=== PATIENT | female | born 1945 | race Caucasian/White ===

== ENCOUNTER → 2023-08-23 12:56 | Outpatient (REF) | payer MEDICARE, BC, SELFPAY | LOC: WDC 12:56 | PROVIDERS: ATTENDING PHYSICIAN Internal Medicine | DX: M85.89 Other specified disorders of bone density and structure, multiple sites (principal); Z12.31 Encounter for screening mammogram for malignant neoplasm of breast | CPT/HCPCS: 77063; 77067; 77080 ==

== ENCOUNTER 2023-09-06 10:54 | Inpatient (IN) | payer MEDICARE, BC, SELFPAY ==
--- NOTE | 2023-08-07 08:36 | CM ---
Patient is scheduled for an elective R TKR on 09/06/23. Spoke with patient prior to surgery via telephone. Introduced role of Orthopedic Navigator. Patient reports that she lives alone in a two story home. There are three steps to enter and patient
has a first floor set up. She currently functions independently and occasionally uses a cane. She has no other DME and has never had VN services. PCP is Dr. Fiona Cardoza.
Discussed orthopedic program and post surgical plans. Reviewed anticipated length of stay and that goal is for her to return home at discharge. Also reviewed outpatient PT. Patient is in agreement with tentative plan and states that [facility] [place] will
see her at home initially.
Patient will complete online education.
Plan: Orthopedic Navigator will remain available to assist with the care of patient and will reassess discharge needs after surgery.
[2023-08-16 09:01] VITALS: BMI 27.8
[2023-08-16 10:46] LABS: % Basophils 0.3 % (0-2); % Eosinophils 1.1 % (0-6); % Immature Granulocytes 0.3 % (0-0.5); % Lymphocytes 36.5 % (20.5-51.1); % Monocytes 9.4 % (1.7-9.3); % Neutrophils 52.4 % (42.2-75.2); Absolute Eosinophils 0.1 10^3/uL (0-0.7); Absolute Lymphocytes 3.8 10^3/uL (1.2-3.4); Absolute Neutrophils 5.4 10^3/uL (1.4-6.5); Hematocrit 42.9 % (37.0-47.0); Hemoglobin 14.5 g/dL (12.0-16.0); Mean Corp Hgb Conc. 33.8 g/dL (33.0-37.0); Mean Corpuscular Volume 91.7 fL (81.0-99.0); Mean Platelet Volume 10.7 fL (7.4-10.4); Nucleated Red Blood Cells % 0 %; Platelet Count 301 10^3/uL (130-400); Red Blood Cell Count 4.68 10^6/uL (4.20-5.40); Red Cell Dist. Width 12.4 % (11.5-14.5); White Blood Cell Count 10.4 10^3/uL (4.8-10.8)
[2023-08-16 11:11] LABS: ALT (SGPT) 32 U/L (0-35); AST (SGOT) 34 U/L (14-36); Albumin 4.6 g/dl (3.5-5.0); Alkaline Phosphatase 109 U/L (38-126); Blood Urea Nitrogen 22 mg/dl (7-17); Calcium 9.7 mg/dl (8.4-10.2); Carbon Dioxide 26 mmol/L (22-30); Chloride 100 mmol/L (98-107); Estimated Creatinine Clearance 71 ml/min; Glucose 123 mg/dl (70-99); HDL Cholesterol 49 mg/dl; LDL Cholesterol, Calculated 107 mg/dl; Potassium 5.2 mmol/L (3.5-5.1); Sodium 135 mmol/L (135-145); Total Bilirubin 0.7 mg/dl (0.2-1.3); Total Cholesterol 183 mg/dl (50-199); Total Protein 6.9 g/dl (6.3-8.2); Triglyceride 137 mg/dl (10-149); Very Low Density Lipoprotein 27 mg/dl (0-30); eGFR > 60.00
[2023-08-16 13:45] LABS: Glycohemoglobin (HgbA1c) 6.6 % (4.0-5.6)
[2023-08-30 12:46] VITALS: BMI 27.8
[2023-09-06] VITALS (10 sets, daily range): BP systolic 96–124; BP diastolic 57–85; BMI 27.8
[2023-09-06] MEDS: CELEBREX 200 MG PO (11:23)
[2023-09-06] MEDS: TYLENOL 650 MG PO ×2 (11:23→20:01)
[2023-09-06] MEDS: NORMOSOL-R 1000 IV ×2 (11:23→16:21)
--- NOTE | 2023-09-06 12:24 | W.DS.TRANS ---
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
-
Discharge Instructions:
Sleep Apnea Risk Low
Discharge Diagnosis/Procedures R TKA Dr. White 09/06/23
Diet Diabetic, Carb Controlled
Activity With Walker
Driving Restrictions No driving
Bathing Restrictions OK to Shower
Instructions:
Stand-Alone Forms: Total Hip/Knee Replacement D/C
Changes to Home Medications: Yes
Discharge Medications:
DC Medications w/original date entered in [employer] by [employer]
alprazolam 0.25 mg tablet (Xanax) 0.25 mg PO HS PRN Sleep 09/01/22
atorvastatin 10 mg tablet 10 mg PO MOWEFR High Cholesterol 09/01/22
duloxetine 60 mg capsule,delayed release (Cymbalta) 60 mg PO DAILY Mental Health/Anxiety 09/01/22
mecobalamin (vitamin B12) 1,000 mcg chewable tablet (B12 Active) 1,000 mcg PO DAILY Supplement 09/01/22
[place] Bergamot 1 cap PO BID 08/30/23
Elderberry 1 cap PO DAILY 08/30/23
Glucosamine Chondroitin 1 tab PO BID 08/30/23
Medical Marijuana 1 drp sublingual PRN PRN Sleep/Pain 08/30/23
amlodipine 10 mg tablet 10 mg PO DAILY 08/30/23
calcium 1 cap PO BID 08/30/23
cholecalciferol (vitamin D3) 50 mcg (2,000 unit) capsule (Vitamin D3) 50 mcg PO DAILY 08/30/23
coenzyme Q10 100 mg capsule (CoQ-10) 300 mg PO DAILY 08/30/23
collagen 1 dose PO DAILY 08/30/23
lisinopril 40 mg tablet 40 mg PO DAILY 08/30/23
mupirocin 2 % topical ointment 1 applic topical BID 08/30/23
turmeric 750 mg PO BID 08/30/23
acetaminophen 325 mg tablet 650 mg (2 x 325 mg) PO QID #0 tabs 09/06/23
aspirin 325 mg tablet 325 mg PO DAILY blood clot prevention #1 tab 09/06/23
celecoxib 200 mg capsule 200 mg PO DAILY anti-inflammatory #14 caps 09/06/23�
docusate sodium 100 mg capsule (Colace) 100 mg PO BID stool softner #1 cap 09/06/23�
magnesium hydroxide 400 mg/5 mL oral suspension (Milk of Magnesia) 30 ml PO HS PRN Constipation #1 mL 09/06/23�
ondansetron 4 mg disintegrating tablet 4 mg PO Q6H PRN n/v #20 tabs 09/06/23�
oxycodone 5 mg tablet 5 mg PO Q6H PRN 1 tab moderate pain, 2 tabs severe pain #30 tabs 09/06/23�
Home Medication Changes
celecoxib 200 mg capsule 200 mg PO DAILY anti-inflammatory #14 caps 09/06/23�
ondansetron 4 mg disintegrating tablet 4 mg PO Q6H PRN n/v #20 tabs 09/06/23�
oxycodone 5 mg tablet 5 mg PO Q6H PRN 1 tab moderate pain, 2 tabs severe pain #30 tabs 09/06/23�
Pending Results: No
[2023-09-06] MEDS: ROXICODONE 5 MG PO (16:28)
--- NOTE | 2023-09-06 17:24 | PTCARENOTE ---
Patient received from PACU in bed; IVF infusing; Surgical site assessed with CAPACITOR REPAIRER; Right knee aquacell C/D/I; Bilateral pedal pulse +2 to palpation; Patient states pain is mild and tolerable; Patient denies N/V at this time; Lower extremity edema
+2, patient states this is normal for her; Bed in lowest position, wheels locked; Call burgos within reach; Patient oriented to room and unit; Assessment ongoing
[2023-09-06] MEDS: TYLENOL PO (17:27)
[2023-09-06 17:33] LABS: Glucose - Point of Care 177 mg/dl (70-99)
[2023-09-06] MEDS: ASPIRIN 325 MG PO (17:35)
[2023-09-06] MEDS: LANTUS 0.04 UNITS SC (17:35)
[2023-09-06] MEDS: NOVOLOG FLEXPEN-MODERATE RESISTANCE 1 UNITS SC (17:36)
--- NOTE | 2023-09-06 18:45 | OR.RPT ---
Operative Report
Operative Report
Orthopaedic Surgery Operative Note
DATE OF OPERATION: 09/06/2023
PREOPERATIVE DIAGNOSES: Osteoarthritis, right knee.
POSTOPERATIVE DIAGNOSES: Osteoarthritis, right knee.
OPERATION PERFORMED:
1) Right total knee arthroplasty (CPT 00756)
2) Intraosseous administration of analgesic (CPT 88908)
SURGEON: Nazario White MD
ASSISTANTS: Eliezer Saldivar PA-C who helped with patient and limb positioning and retraction
ANESTHESIA: Spinal by anesthesia plus intraoperative infusion of morphine into the tibial metaphysis by Dr. White
COMPLICATIONS: None.
ESTIMATED BLOOD LOSS: 20mL
DRAINS: None
TOURNIQUET TIME: 46 minutes.
FINDINGS: Full thickness diffuse articular cartilage wear over medial femoral condyle and trochlea
IMPLANTS:
- Adama Persona CR Femur, size 9
- Adama Persona tibia base plate, size E
- Adama Persona ultracongruent articular surface, 10 mm
- DJO [place] bone cement
INDICATIONS: The patient presented to my office with debilitating right knee pain due to osteoarthritis. We reviewed the natural history of this problem, as well as the risks, benefits, and alternatives of various treatment options. The patient
exhausted all nonoperative treatment options and wished to proceed with knee replacement surgery. The patient understood the risks which included, but were not limited to, bleeding, infection, failure to relieve pain, more pain than preop, damage to
blood vessels and nerves, need for reoperation, mechanical failure of the implants, wound healing problems, stiffness, instability, blood clot, pulmonary embolism, myocardial infarction, pneumonia, arrhythmia, CVA, and . The patient accepted
these risks and wished to proceed. All questions were answered, and informed consent was obtained.
PROCEDURE IN DETAIL: The patient was identified in the preoperative holding area. The right knee was identified as the operative site. The patient was taken in the operating room and placed in a supine position on the operating table. Spinal
anesthesia was performed. IV antibiotics and tranexamic acid were administered. An SCD was placed on the left lower extremity. A well-padded tourniquet was placed on the proximal thigh. All bony prominences were well padded. The right lower
extremity was prepped and draped in the usual sterile fashion.
We performed a surgical time-out. An interarticular block was performed with local anesthetic with epinephrine. The limb was exsanguinated with an Esmarch bandage, then the tourniquet was inflated to 250 mmHg. I performed interosseous administration
of morphine-saline solution via a Jamshidi style intraosseous needle into the proximal medial tibial metaphysis as described by Tremayne Soares MD. This was performed to aid in pain control. A midline skin incision was made followed by a medial
parapatellar arthrotomy. A subperiosteal peel was performed on the medial tibia. I excised part of the infrapatellar fat pad to improve our visualization as well as tissue over anterior femur. The patella was everted and the knee was flexed. I
excised the remnants of the anterior and posterior cruciate ligaments as well as tibial and femoral osteophytes with rongeurs.
The knee was flexed, and the extramedullary tibial cutting guide was aligned. [place] was aligned at neutral, rotation was centered on the tibial tubercle, and coronal alignment was aligned with the mechanical axis of the tibia and center of the ankle
joint. The cut height was 10mm off the lateral tibia joint surface. The guide was secured into place. The MCL and LCL were protected. The tibia surface was cut. The cut surface was inspected after removal to ensure appropriate height and slope based
on the preoperative plan. The cut was checked with a drop oral. It was centered nicely at the ankle.
A drill was used to open the femoral canal. The intramedullary distal femoral cutting guide was inserted into the femur. This was set at 5 degrees +0. This was secured into place with three pins. The cut level was checked with an nat wing. The
distal femur was cut through the cutting guide. The IM guide was reinserted to double check that the level of resection was flush and in appropriate alignment.
Emily�s line and the transepicondylar axis were marked on the femur. The femoral sizing guide was applied to the anterior femur. Pins were inserted, and the 4-in-1 cutting guide was applied and secured into place. The rotation was compared to
[place]�s line, the transepicondylar axis, and the neutral tibia cut and was found to be appropriate. The width was checked and found to be appropriate and lateralized on the femur. The anterior, posterior, and chamfur cuts were made. A lamina
cfo controller was used to open the flexion gap, and posterior osteophytes were removed with a curved osteotome. The remnant medial and lateral meniscus were also removed. I prophylactically cauterized the lateral geniculate arteries. A 10mm spacer block
was applied to the flexion gap and was noted to be balanced medially and laterally. The knee was extended, and the block showed symmetric to extension and flexion gaps.
The tibia was exposed and sized. Rotation was set in line with the tibial tubercle and congruent with the femur. The trial was secured into place with two pins. The trial femur was impacted into place, and a trial articular surface was placed. The
knee was taken through range of motion and noted to be stable throughout the arc of motion without gaping or excess tension. The patella was noted to track centrally throughout the arc of motion without need for further releases. No full thickness
cartilage defects.
The trials were removed. The tibia keel was prepared with the punch and the drill. The bone surfaces were irrigated with sterile saline and dried. The cement was mixed in a vacuum mixer. Cement gun was used to apply cement to the tibial surface and
the undersurface of the tibial implant. Cement was pressurized into the tibial canal and tibia surface. The tibial component was impacted into place. Excess cement was removed. Cement was applied to the femoral surface and the femoral component. The
femoral component was impacted into place, and excess cement removed. A trial articular surface was inserted, and the knee was extended while the cement polymerized. The tourniquet was let down, and meticulous hemostasis was achieved. Dilute
betadine was poured into the wound and allowed to soak for 3 minutes. The knee was irrigated with copious normal saline.
Once the cement was polymerized, the trial articular surface was removed. Any excess cement was removed. The knee was trialed, and the final articular surface was selected and inserted into the tibial locking mechanism. The knee was reduced. A fresh
drape was applied to the surgical field.
The arthrotomy was closed with 0-PDS. Once closed, an interarticular block was performed with local anesthetic with epi. The deep dermal layer was closed with 2-0 PDS, and the subcuticular skin was closed with 3-0 monocryl. A Dermabond Prineo
dressing was applied to the skin in full flexion. Once this was completely dry, a sterile waterproof dressing was applied.
The anesthesia team performed an adductor canal block in the OR. The patient awoke from anesthesia without any difficulties. The sponge and instrument counts were correct x2 at the end of the case.
Redd White MD
[2023-09-06] MEDS: ANCEF 5 IV (20:01)
[2023-09-06] MEDS: TORADOL 15 MG IV (20:01)
[2023-09-06] MEDS: COLACE 100 MG PO (20:01)
[2023-09-06] MEDS: SENOKOT 17.2 MG PO (20:01)
[2023-09-06] MEDS: BACTROBAN 2% OINTMENT 1 APPLIC NASAL (20:02)
[2023-09-06] MEDS: NEURONTIN 300 MG PO (21:55)
[2023-09-06] MEDS: ROXICODONE 10 MG PO (21:55)
[2023-09-06] MEDS: PEPCID 20 MG PO (21:55)
[2023-09-06 22:03] LABS: Glucose - Point of Care 260 mg/dl (70-99)
[2023-09-07] MEDS: TYLENOL PO (01:18)
[2023-09-07 03:32] VITALS: BP 113/61
[2023-09-07] MEDS: ANCEF 5 IV (03:46)
[2023-09-07] MEDS: TYLENOL 650 MG PO ×3 (03:46→11:21)
--- NOTE | 2023-09-07 04:00 | PTCARENOTE ---
While walking to the bathroom with the RW and the PCT, Stefanie felt like her R knee was giving out. She was eased onto the toilet. She appeared to have no difficulty walking back to bed. She is now agreeable to use the bedside commode and has ordered
one for home too.
[2023-09-07] MEDS: ROXICODONE 5 MG PO (05:23)
[2023-09-07 07:21] VITALS: BP 144/86
[2023-09-07] MEDS: NOVOLOG FLEXPEN-MODERATE RESISTANCE SC (08:00)
[2023-09-07 08:01] LABS: Glucose - Point of Care 146 mg/dl (70-99)
[2023-09-07] MEDS: MOBIC 15 MG PO (08:02)
[2023-09-07] MEDS: ASPIRIN 325 MG PO (08:02)
[2023-09-07] MEDS: SENOKOT 17.2 MG PO (08:02)
[2023-09-07] MEDS: CYMBALTA DELAYED RELEASE 60 MG PO (08:02)
[2023-09-07] MEDS: COLACE 100 MG PO (08:02)
[2023-09-07] MEDS: TORADOL 15 MG IV (08:03)
[2023-09-07] MEDS: BACTROBAN 2% OINTMENT 1 APPLIC NASAL (08:03)
[2023-09-07] MEDS: LANTUS 0.04 UNITS SC (08:03)
[2023-09-07] MEDS: LIPITOR 10 MG PO (08:10)
[2023-09-07 09:17] VITALS: BP 120/79; PULSE 76
[2023-09-07 09:59] VITALS: BP 150/75; PULSE 81; O2SAT 99
--- NOTE | 2023-09-07 10:19 | CM ---
CM following re: discharge planning.
Reviewed pt' chart, met with pt.
Pt stated she is aware she will be discharged home today and she expressed her agreement with discharge. Pt stated her sister will transport home. IMM reviewed, placed on chart, pt has a copy.
Pt stated that after care PT/OT services have been set up with [facility] outpatient PT/OT at home [phone]
Please fax discharge instructions to [facility] at home at [phone]
D/C plan: home with [facility] at home. Sister to transport.
[2023-09-07 10:59] VITALS: BP 140/76
--- NOTE | 2023-09-07 11:05 | W.PN.ORTHO ---
Today's Communication / Plan
-
d/c
Assessment
.
Distal Motor Intact: Yes
Dressing:
Clean, dry and intact.
Plan
.
Surgery / Date: Hailey White 09/06/23
DVT Prophylaxis: Aspirin
Activity:
Out of bed.
PT/OT
Discharge Plan: Home w/ Outpatient PT
Subjective
.
.:
Patient resting comfortably.
Vital Signs and Labs
.
Vital Signs and Labs:
Lab Results
08/16/23 08:57
08/16/23 08:57
Temp Pulse Resp BP Pulse Ox
98.2 F 82 16 144/86 96
09/07/23 07:21 09/07/23 07:21 09/07/23 07:21 09/07/23 08:02 09/07/23 07:21
Physical Exam
-
HEENT: No pallor, cyanosis, or jaundice. Throat clear.
NECK: Supple. No JVD.
RESPIRATORY: Lungs clear to auscultation.
CVS: S1, S2 normal. RRR.� No murmur, rub or gallop.
ABDOMEN: Soft, non-tender. No distension. BS+/normal.
EXTREMITIES: strength equal, no calf pain with palpation
GREEN BUILDING ENERGY ENGINEER: AOx3. No focal deficits. recreation establishment manager grossly intact
== END 2023-09-07 12:05 | disposition home or self-care (01) | DRG 470 ==
LOC: 2 SOUTH 10:54
PROVIDERS: ADMITTING PHYSICIAN Orthopaedic Surgery; FAMILY PHYSICIAN Internal Medicine
PROC: 0SRC0J9 Replacement of Right Knee Joint with Synthetic Substitute, Cemented, Open Approach (ICD-10-PCS; 2023-09-06)
DX: M17.11 Unilateral primary osteoarthritis, right knee (principal)
CPT/HCPCS: 36415; 73560; 80053; 80061; 82962; 83036; 84443; 85025; 87070; 97116; 97162; 97166; 97535; C1713; C1776

== ENCOUNTER → 2023-09-21 11:56 | Outpatient (REF) | payer MEDICARE, BC, SELFPAY | LOC: RAD 11:56 | PROVIDERS: ATTENDING PHYSICIAN Student in an Organized Health Care Education/Training Program; FAMILY PHYSICIAN Internal Medicine | DX: M79.671 Pain in right foot (principal) | CPT/HCPCS: 73700 ==

== ENCOUNTER → 2024-08-26 11:11 | Outpatient (REF) | payer MEDICARE, BC, SELFPAY | LOC: HWWDC 11:11 | PROVIDERS: ATTENDING PHYSICIAN Internal Medicine | DX: Z12.31 Encounter for screening mammogram for malignant neoplasm of breast (principal) | CPT/HCPCS: 77063; 77067 ==

== ENCOUNTER → 2024-09-24 10:24 | Outpatient (REF) | payer MEDICARE, BC, SELFPAY | LOC: RAD 10:24 | PROVIDERS: ATTENDING PHYSICIAN Student in an Organized Health Care Education/Training Program; FAMILY PHYSICIAN Internal Medicine | DX: M79.672 Pain in left foot (principal) | CPT/HCPCS: 76881 ==

== ENCOUNTER → 2025-01-08 13:58 | Outpatient (REF) | payer MEDICARE, BC, SELFPAY | LOC: HWRCS 13:58 | PROVIDERS: ATTENDING PHYSICIAN Internal Medicine; FAMILY PHYSICIAN Internal Medicine | DX: Z95.0 Presence of cardiac pacemaker (principal); I10 Essential (primary) hypertension; R06.09 Other forms of dyspnea | CPT/HCPCS: 93306 ==

== ENCOUNTER → 2025-01-09 08:51 | Outpatient (REF) | payer MEDICARE, BC, SELFPAY | LOC: DHSLP 08:51 | PROVIDERS: ATTENDING PHYSICIAN Internal Medicine; FAMILY PHYSICIAN Internal Medicine | DX: G47.33 Obstructive sleep apnea (adult) (pediatric) (principal); R09.02 Hypoxemia | CPT/HCPCS: 95806 ==